=== PATIENT | female | born 1970 | race African-American/Black ===

== ENCOUNTER 2024-11-05 14:50 | Emergency (ER) | payer MEDICAID ==
[~2024-11-05] VITALS: Ht 160 cm; Wt 84.0 kg
[2024-11-05 15:03] VITALS: BP 180/115; TEMP 98.7; O2SAT 98
[2024-11-05 15:04] VITALS: PULSE 128; RESP 18; O2SAT 99
[2024-11-05 16:01] LABS: BASOPHILS % 0.7 % (0.0-2.0); EOSINOPHILS % 0.3 % (0.0-5.0); HEMATOCRIT. 44.5 % (36.0-48.0); HEMOGLOBIN. 14.8 g/dL (12.0-16.0); LYMPHOCYTES % 49.3 % (20.0-50.0); MEAN CORPUSCULAR HEMOGLOBIN 27.8 pg (28.0-32.0); MEAN CORPUSCULAR HGB CONC 33.3 g/dL (31.0-37.0); MEAN CORPUSCULAR VOLUME 83.5 fL (81.0-99.0); MEAN PLATELET VOLUME 7.7 fl (7.4-10.4); MONOCYTES % 10.3 % (2.0-8.0); NEUTROPHILS % 39.4 % (40.0-76.0); PLATELET 351 x1000/uL (130-400); RED BLOOD CELL COUNT 5.33 mill/uL (4.2-5.4); RED CELL DISTRIBUTION WIDTH 15.7 % (11.6-14.6); WHITE BLOOD COUNT 5.6 x1000/uL (4.5-11.0)
[2024-11-05 16:05] LABS: POTASSIUM 3.7 mEq/L (3.5-5.1)
[2024-11-05 16:06] LABS: CALCIUM 9.3 mg/dL (8.7-10.4)
[2024-11-05 16:11] LABS: CREATININE 1.4 mg/dL (0.6-1.0)
[2024-11-05 22:07] LABS: TROPONIN I HIGH SENSITIVITY 6 ng/L (3.0-34)
== END 2024-11-05 23:41 | disposition left against medical advice (07) ==
LOC: ER 14:50
DX: R07.9 Chest pain, unspecified (principal); R00.0 Tachycardia, unspecified
CPT/HCPCS: 36415; 71045; 80048; 84484; 85025; 93005; 99285